=== PATIENT | male | born 1945 ===

== ENCOUNTER 2018-04-05 17:05 | Emergency (ER) ==
--- NOTE | 2018-04-05 17:15 | NUR ---
PT DID NOT WANT TO BE SEEN HERE AFTER ASKING IF WE COULD VIEW HIS CANCER RECORDS FROM [facility]. MULTIPLE APPOLIGIES GIVEN BECAUSE "THE NURSE AT [facility] TOLD US TO GO TO ANY [facility] AND THEY HAVE OUR RECORDS." PT/FM UNDERSTANDING BUT A LITTLE UPSET STILL. EXPLAINED WE COULD SEE THEM HERE, BUT WANTED TO DRIVE TO [facility] SINCE ALL HIS RECORDS ARE THERE.
== END 2018-04-05 17:18 | disposition short-term general hospital (02) ==
LOC: FSED 17:05
DX: M79.89 Other specified soft tissue disorders (principal)